=== PATIENT | female | born 1975 | race African-American/Black ===

== ENCOUNTER 2018-06-03 07:30 | Emergency (ER) | payer OTHER ==
[~2018-06-03] VITALS: Ht 165.1 cm; Wt 77.1 kg
[~2018-06-03 07:30] MED LIST: CIPROFLOXACIN500 M1 PO; GLUCOPHAGE500 MG PO; GLUMETZA500 PO; GLYBURIDE 5 MG T5 M1 PO; GLYBURIDE 5 MG T5 MG GT; IBUPROFEN 800800 M1 PO; LISINOPRIL10 MG PO; MONISTAT 745 GM VG; NORCO 5-325 TA1 EACH PO; PHENERGAN 25 MG25 M1 PO; PRINIVIL10 MG PO
[2018-06-03] MEDS ORDERED: PRILOSEC 10MG C10 MG PO (11:29)
[2018-06-03] MEDS ORDERED: INVOKANA100 MG PO (11:30)
[2018-06-03] MEDS ORDERED: PROTONIX40 MG PO (11:51)
[2018-06-03 12:06] VITALS: BP 129/78
--- NOTE | 2018-06-08 11:08 | PATH ---
[facility] [address] [place] [address] PATHOLOGY RPT PROCEDURE Name: HANS VENEGASJonah Louise Room #: DEP AFRICA Leigh#: [id number] ������������������ Admission: 06/03/18 ������������������ Date of : 77 Discharge: 06/03/18 Report #: [id number] Path Case #: [id number] [facility] Accession Number: [id number] . 01 Material submitted: . BX PROXIMAL ESOPHAGUS . 01 Clinical history: . Pre-OP DX: Dysphagia Post-OP DX: Esophageal stricture . 02 Diagnosis: Squamous mucosa, proximal esophagus, endoscopic biopsy: - Moderate active esophagitis associated with 1-2 intraepithelial eosinophils as well as fungal hyphal elements in addition to bacterial aggregates, history of esophageal stricture. - Negative for intestinal metaplasia, dysplasia, or malignancy. (IUV:heel compressor; 06/06/2018) MBR/06/06/2018 . 02 Comment: S fungal special stain is performed and it shows fungal hyphal elements present within the fibrinopurulent material, as well as several within the detached epithelial elements. (IUV:heel compressor; 06/06/2018) . 02 Electronically signed: . Yolanda Ochoa MD, Pathologist NPI- [id number] . 01 Gross description: . Received in formalin labeled "Eladio Venegas, BX proximal esophagus," are multiple segments of weber soft tissue measuring 0.6 x 0.3 x 0.1 cm in aggregate dimensions. The specimen is filtered and entirely submitted in cassette A1. (TSD; 06/03/2018) TOB/TOB . 02 Pathologist provided ICD-10: K20.9 . 02 CPT . 332355, 561948 Specimen Comment: A courtesy copy of this report has been sent to Specimen Comment: [phone], . Specimen Comment: Report sent to / DR RIOS Specimen Comment: A duplicate report has been [place] [id number] PATHOLOGY RPT PROCEDURE Name: ELADIO VENEGAS Room #: [facility] Lu#: [id number] ������������������ Admission: 06/03/18 ������������������ Date of : 77 Discharge: 06/03/18 Report #: [id number] Path Case #: [id number] updates. Performed at: [facility] [address] [place] [address] [address], [place], [place] [id number] MD Javan Singh MD Phone: [phone] Performed at: [address] [id number] MD Yolanda Ochoa MD Phone: [phone]
== END 2018-06-03 12:07 | disposition home or self-care (01) ==
LOC: ER 07:30
DX: K21.9 Gastro-esophageal reflux disease without esophagitis (principal); K64.9 Unspecified hemorrhoids; K22.2 Esophageal obstruction; I10 Essential (primary) hypertension; E11.9 Type 2 diabetes mellitus without complications; Z88.2 Allergy status to sulfonamides; Z88.7 Allergy status to serum and vaccine; Z88.1 Allergy status to other antibiotic agents; Z98.890 Other specified postprocedural states
CPT/HCPCS: 62110; 62900